=== PATIENT | female | born 1970 ===

== ENCOUNTER 2018-01-22 12:06 | Emergency (ER) | payer MEDICAID ==
[~2018-01-22] VITALS: Ht 160 cm; Wt 54.0 kg
[~2018-01-22 12:06] MED LIST: CEPH-460 PO; CLIN300C5 PO; CLON0.1T PO; FAMO1TAB37 PO; IBUP1TAB5 PO; PERC7.5T13 PO; SM C1CRE VAGINAL; TRAZ300T2 PO
[2018-01-22 12:18] VITALS: BP 117/59; PULSE 66; RESP 16; TEMP 98.8; O2SAT 98
[2018-01-22] MEDS ORDERED: SODIUM CHLORIDE 0.9% FLUSH 10 ML FLUSH IV FLUSH PRN (12:45)
[2018-01-22] MEDS ORDERED: ACETAMINOPHEN/HYDROcodone 325 MG/5 MG TAB PO ONE (12:45)
[2018-01-22] MEDS ORDERED: BACL10TA PO (12:57)
[2018-01-22] MEDS ORDERED: DICL50TA PO (12:57)
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
[2018-01-22 13:01] LABS: AUTOMATED NEUTROPHIL # 3.9 TH/MM3 (1.8-7.7); BASOPHIL % 0.5 % (0.0-2.0); EOSINOPHIL # 0.2 TH/MM3 (0-0.4); EOSINOPHIL % 2.6 % (0.0-4.0); HEMATOCRIT 34.9 % (35.0-46.0); HEMOGLOBIN 11.9 GM/DL (11.6-15.3); LYMPH % 24.6 % (9.0-44.0); LYMPHOCYTE # 1.5 TH/MM3 (1.0-4.8); MEAN CELL VOLUME 89.3 FL (80.0-100.0); MEAN CORPUSCULAR HEMOGLOBIN 30.5 PG (27.0-34.0); MEAN CORPUSCULAR HGB CONC 34.1 % (32.0-36.0); MEAN PLATELET VOLUME 7.1 FL (7.0-11.0); MONO % 9.3 % (0.0-8.0); MONOCYTE # 0.6 TH/MM3 (0-0.9); PLATELET COUNT 178 TH/MM3 (150-450); RED CELL DISTRIBUTION WIDTH 13.7 % (11.6-17.2); WHITE BLOOD COUNT 6.2 TH/MM3 (4.0-11.0)
[2018-01-22 13:13] LABS: ALBUMIN 3.3 GM/DL (3.4-5.0); ALT (GPT) 11 U/L (10-53); AST (GOT) 12 U/L (15-37); BICARBONATE 25.4 MEQ/L (21.0-32.0); BLOOD UREA NITROGEN 4 MG/DL (7-18); CALCIUM 8.2 MG/DL (8.5-10.1); CHLORIDE 106 MEQ/L (98-107); CREATININE 0.74 MG/DL (0.50-1.00); GLOMERULAR FILTRATION RATE 84 ML/MIN (>89); GLUCOSE,RANDOM 84 MG/DL (74-106); SODIUM (NA) 140 MEQ/L (136-145)
[2018-01-22 13:16] LABS: ALKALINE PHOSPHATASE 58 U/L (45-117); TOTAL BILIRUBIN ADULT 0.2 MG/DL (0.2-1.0); TOTAL PROTEIN 6.3 GM/DL (6.4-8.2)
[2018-01-22] MEDS ORDERED: MORPHINE SULFATE 4 MG/ML INJ IV PUSH ONE (14:00)
[2018-01-22] MEDS ORDERED: ONDANSETRON HCL 4 MG/2 ML VIAL IV PUSH ONE (14:00)
[2018-01-22] MEDS ORDERED: KETOROLAC TROMETHAMINE 30 MG/ML (IVP) VIAL IV PUSH ONE (14:00)
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
[2018-01-22] MEDS ORDERED: IBUPROFEN 600 MG TAB PO ONE (15:30)
== END 2018-01-22 15:39 | disposition home or self-care (01) ==
LOC: NEPD 12:06
DX: S00.83XA Contusion of other part of head, initial encounter (principal); S20.219A Contusion of unspecified front wall of thorax, initial encounter; Y04.0XXA Assault by unarmed brawl or fight, initial encounter; M54.5 Low back pain; G89.29 Other chronic pain; R91.8 Other nonspecific abnormal finding of lung field; I11.0 Hypertensive heart disease with heart failure; I50.9 Heart failure, unspecified; F17.200 Nicotine dependence, unspecified, uncomplicated
CPT/HCPCS: 70450; 70486; 71250; 80053; 85025; 96374; 96375; 99284; J1885; J2270; J2405